=== PATIENT | female | born 1950 | race African-American/Black ===

== ENCOUNTER → 2016-06-02 | Outpatient (CLI) | payer MEDICARE, MEDICAID | END | disposition home or self-care (01) | LOC: NM 08:19 | PROVIDERS: ATTEND Internal Medicine | DX: E04.9 Nontoxic goiter, unspecified (principal) | CPT/HCPCS: 78014; A9516 ==

== ENCOUNTER 2017-07-05 18:39 | Emergency (ER) | payer MEDICARE, MEDICAID ==
[~2017-07-05] VITALS: Ht 172.7 cm; Wt 91.0 kg
[2017-07-06 00:23] VITALS: BP 124/87
== END 2017-07-06 00:25 | disposition home or self-care (01) ==
LOC: ER 20:02
DX: M54.12 Radiculopathy, cervical region (principal); E11.9 Type 2 diabetes mellitus without complications; I10 Essential (primary) hypertension; F17.200 Nicotine dependence, unspecified, uncomplicated; Z90.721 Acquired absence of ovaries, unilateral; Z88.0 Allergy status to penicillin
CPT/HCPCS: 99282